=== PATIENT | male | born 1985 | race American Indian/Alaskan Native ===

== ENCOUNTER 2017-10-05 14:06 | Emergency (ER) | payer SELFPAY ==
[2017-10-05] MEDS ORDERED: ASPIRIN PO ONE (14:33)
[2017-10-05 15:04] LABS: Basophils # (Auto) 0.1 K/mm3 (0.0-0.1); Basophils % (Auto) 0.8 % (0.0-1.8); Eosinophils % (Auto) 0.2 % (0.0-4.3); Hematocrit 45.4 % (35.5-45.6); Hemoglobin 15.8 gm/dl (11.8-15.2); Lymphocytes # (Auto) 1.1 K/mm3 (1.2-5.4); Mean Corpuscular HGB Conc 35 % (32-34); Mean Corpuscular Hemoglobin 31 pg (28-32); Mean Corpuscular Volume 89 fl (84-94); Monocytes # (Auto) 0.7 K/mm3 (0.0-0.8); Monocytes % (Auto) 10.6 % (0.0-7.3); Platelet Count 241 K/mm3 (140-440); Red Blood Count 5.12 M/mm3 (3.65-5.03); Red Cell Distribution Width 13.8 % (13.2-15.2)
[2017-10-05 15:08] LABS: BUN/Creatinine Ratio 15; Blood Urea Nitrogen 9 mg/dL (9-20); Hemolysis Index 33
--- NOTE | 2017-10-05 15:39 | Emergency Department Report ---
ED Chest Pain HPI - General Chief Complaint: Chest Pain Stated Complaint: CHEST PAIN Time Seen by Provider: 10/05/17 15:01 Source: EMS Mode of arrival: Stretcher Limitations: No Limitations - History of Present Illness Initial Comments: Patient said last night, he developed sudden onset left-sided chest pain that radiated down his left arm. It occurred at rest. He went to sleep. This morning, his symptoms returned worse than the night before. He got lightheaded and passed out onto the ground. Intermittently remembers lying on the floor unable to move. Had urinary incontinence. He was having difficult breathing until EMS put oxygen on him. The patient arrives to the ER complaining of chest pain and that his whole body is numb. He says that his first cousin from unexplained heart condition. Reportedly, he was told that he has an enlarged heart and was supposed to have surgery for it but never did. Currently is incarcerated. Severity scale (0 -10): 10 - Related Data Previous Rx's Medication Instructions Recorded Last Taken Type HYDROcodone/APAP 5-325 [Bul[place]de 1 each PO Q6HR PRN #10 tablet 05/05/16 Unknown Rx 5/325] Allergies Allergy/AdvReac Type Severity Reaction Status Date / Time No Known Allergies Allergy Verified 05/04/16 22:59 Heart Score - HEART Score History: Slightly suspicious EKG: Normal Age: < 45 Risk factors: 1-2 risk factors Troponin: < normal limit HEART Score: 1 ED Review of Systems ROS: Stated complaint: CHEST PAIN Other details as noted in HPI Constitutional: denies: chills, fever Eyes: denies: eye pain, eye discharge, vision change ENT: denies: ear pain, throat pain Respiratory: SOB at rest. denies: cough, shortness of breath, wheezing Cardiovascular: chest pain, syncope. denies: palpitations Endocrine: no symptoms reported Gastrointestinal: nausea. denies: abdominal pain, diarrhea Genitourinary: denies: urgency, dysuria Musculoskeletal: denies: back pain, joint swelling, arthralgia Skin: denies: rash, lesions Neurological: paresthesias. denies: headache, weakness Psychiatric: denies: anxiety, depression Hematological/Lymphatic: denies: easy bleeding, easy bruising ED Past Medical Hx - Past Medical History Previous Medical History?: Yes Hx Hypertension: Yes Additional medical history: cardiomegaly,anemia,cholesterol - Surgical History Past Surgical History?: No - Social History Smoking Status: Former Smoker Substance Use Type: None - Medications Home Medications: Home Medications Medication Instructions Recorded Confirmed Last Taken Type HYDROcodone/APAP 5-325 [Bul[place]de 1 each PO Q6HR PRN #10 tablet 05/05/16 Unknown Rx 5/325] ED Physical Exam - General Limitations: No Limitations General appearance: alert, in no apparent distress - Head Head exam: Present: atraumatic, normocephalic - Eye Eye exam: Present: normal appearance - ENT ENT exam: Present: mucous membranes moist - Neck Neck exam: Present: normal inspection - Respiratory Respiratory exam: Present: normal lung sounds bilaterally, chest wall tenderness. Absent: respiratory distress, accessory muscle use - Cardiovascular Cardiovascular Exam: Present: regular rate, normal rhythm. Absent: systolic murmur, diastolic murmur, rubs, gallop - GI/Abdominal GI/Abdominal exam: Present: soft, tenderness (generalized), normal bowel sounds. Absent: guarding, rebound - Rectal Rectal exam: Present: deferred - Extremities Exam Extremities exam: Present: normal inspection - Back Exam Back exam: Present: normal inspection - Neurological Exam Neurological exam: Present: alert, oriented X3, other (able to move all of his extremities) - Psychiatric Psychiatric exam: Present: normal affect, normal mood - Skin Skin exam: Present: warm, dry, intact, normal color. Absent: rash ED Course Vital Signs 10/05/17 10/05/17 14:25 14:41 Temperature 98.3 F 98.2 F Pulse Rate 57 L 57 L Respiratory 9 L 9 L Rate Blood Pressure 144/86 Blood Pressure 144/86 [Right] O2 Sat by Pulse 100 100 Oximetry ED Medical Decision Making - Lab Data Result diagrams: 10/05/17 14:41 10/05/17 14:41 - EKG Data -: EKG Interpreted by Me EKG shows normal: sinus rhythm, axis, intervals, QRS complexes, ST-T waves ( Inferior TWI) Rate: normal - EKG Data Interpretation: nonspecific ST-T wave jasiel - Medical Decision Making 31-year-old male a self-reported history of enlarged heart that presents with syncope and chest pain. Patient is well appearing. Vitals are stable. EKG is nonischemic. Lab work is unremarkable. Unsure if patient is having organic causes of the symptoms. When I'm in the room, he says that he cannot breathe without the nasal cannula in his nose. However, the nasal cannula was not hooked up to oxygen and is showing no signs of respiratory distress or hypoxia. He says that his whole body is numb and that he is unable to close his hands. However, he withdraws to pain in EXTREMITIES. Self-reported neuro deficits showed no anatomic pattern. He is alert and oriented 3. Did have a fall from standing. No indication for CT head imaging based on [place] head CT rules. It is possible that patient might have had a mild seizure since he says he had incontinence and does not remember the event. No history of seizures. My main concern is for possible arrhythmia causing syncope. EKG shows no signs of congenital abnormalities. However, he has a self-reported history of enlarged heart and a first cousin dying from unexplained cardiac reasons. I discussed with the security specialist with the patient who said that their facilities equipped for cardiac monitoring in the medical unit. Patient will have a d- dimer to exclude PE. If positive, patient's have a CT of his chest. I have given him IV fluids. If d-dimer and chest x-ray unremarkable, it is likely that the patient will be discharged with a diagnosis of syncope with outpatient instructions to get a TTE of his heart within the next week. This patient has been signed out to the oncoming physician. - Differential Diagnosis ACS, PE, arrhythmia, dehydration, malingering, pneumothorax Critical care attestation.: If time is entered above; I have spent that time in minutes in the direct care of this critically ill patient, excluding procedure time. ED Disposition Clinical Impression: Syncope and collapse Disposition: Z-01 MED SCREENING EXAM-CONT Is pt being admited?: No Condition: Stable Instructions: Syncope (ED)
[2017-10-05] MEDS ORDERED: NACL 0.9% 500 ML 500 ML IV ONE (16:04)
[2017-10-05] MEDS ORDERED: NACL 0.9% 1000 ML 1,000 ML IV ONE (16:04)
[2017-10-05] MEDS ORDERED: NORCO 5/325 PO ONE (17:17)
[2017-10-05] MEDS ORDERED: NORCO 5/325 ONE (17:17)
--- NOTE | 2017-10-05 17:22 | XRay Report ---
FINAL REPORT EXAM: XR CHEST 1V AP HISTORY: chest pain TECHNIQUE: Single, portable chest x-ray. PRIORS: None. FINDINGS: Cardiac and mediastinal silhouette within normal limits. Lungs are normally expanded and grossly clear. No apparent pneumothorax. Bony thorax grossly unremarkable. IMPRESSION: 1. No acute findings.
[2017-10-05 19:29] VITALS: BP 122/75
== END 2017-10-05 19:41 | disposition home or self-care (01) ==
LOC: ED 14:06
DX: R55 Syncope and collapse (principal); R07.89 Other chest pain; I10 Essential (primary) hypertension; Z87.891 Personal history of nicotine dependence
CPT/HCPCS: 36415; 71045; 80048; 84484; 85025; 85379; 93005; 93010; 96360; 99284; J7030; J7040

== ENCOUNTER 2019-06-12 06:56 | Emergency (ER) | payer SELFPAY ==
[2019-06-12 07:35] LABS: Basophils % (Auto) 0.2 % (0.0-1.8); Eosinophils % (Auto) 0.3 % (0.0-4.3); Hematocrit 46.4 % (35.5-45.6); Lymphocytes # (Auto) 0.4 K/mm3 (1.2-5.4); Mean Corpuscular HGB Conc 34 % (32-34); Mean Corpuscular Volume 90 fl (84-94); Monocytes % (Auto) 10.7 % (0.0-7.3); Platelet Count 220 K/mm3 (140-440); Red Blood Count 5.14 M/mm3 (3.65-5.03); Red Cell Distribution Width 13.5 % (13.2-15.2)
[2019-06-12 07:59] LABS: Alanine Aminotransferase 28 units/L (7-56); Albumin 4.7 g/dL (3.9-5); BUN/Creatinine Ratio 14; Blood Urea Nitrogen 11 mg/dL (9-20); Calcium 9.9 mg/dL (8.4-10.2); Hemolysis Index 22
[2019-06-12] MEDS ORDERED: ONDANSETRON 4 MG ODT TAB PO ONE (08:06)
[2019-06-12] MEDS ORDERED: KETOROLAC 30 MG/1 ML INJ IM ONE (08:06)
[2019-06-12 08:07] VITALS: BP 117/73
--- NOTE | 2019-06-12 08:15 | Emergency Department Report ---
ED Fever HPI - General Chief Complaint: Abdominal Pain Stated Complaint: FLU SYMPTOMS Time Seen by Provider: 06/12/19 07:59 - History of Present Illness Initial Comments: flu like sx myalgias, fever cough, congestion dysuria n/v/d sx x 3 days Timing/Duration: other (3 days) Fever Severity/Quality: greater than 100.5 F Associated Symptoms: cough, headache, muscle aches, nausea/vomiting. denies: shortness of breath, stiff neck ED Review of Systems ROS: Stated complaint: FLU SYMPTOMS Other details as noted in HPI Comment: All other systems reviewed and negative Constitutional: see HPI ENT: as per HPI Respiratory: see HPI Gastrointestinal: as per HPI Genitourinary: as per HPI Neurological: as per HPI ED Past Medical Hx - Past Medical History Previous Medical History?: Yes Hx Hypertension: Yes Additional medical history: cardiomegaly,anemia,cholesterol - Surgical History Past Surgical History?: No - Social History Smoking Status: Never Smoker Substance Use Type: None - Medications Home Medications: Home Medications Medication Instructions Recorded Confirmed Last Taken Type HYDROcodone/APAP 5-325 [[place] 1 each PO Q6HR PRN #10 tablet 05/05/16 Unknown Rx 5/325] Albuterol Sulfate [Proventil Hfa] 1 - 2 puff IH QID #1 hfa.aer.ad 06/12/19 Unknown Rx Benzonatate 200 mg PO BID #21 capsule 06/12/19 Unknown Rx predniSONE [Deltasone] 40 mg PO QDAY #10 tab 06/12/19 Unknown Rx ED Physical Exam - General Limitations: No Limitations General appearance: alert, in no apparent distress - Head Head exam: Present: atraumatic, normocephalic - Eye Eye exam: Present: normal appearance - ENT ENT exam: Present: normal orophraynx, mucous membranes moist - Neck Neck exam: Present: normal inspection - Respiratory Respiratory exam: Present: normal lung sounds bilaterally, other (productive cough noted). Absent: respiratory distress - Cardiovascular Cardiovascular Exam: Present: regular rate, normal rhythm. Absent: systolic murmur, diastolic murmur, rubs, gallop - GI/Abdominal GI/Abdominal exam: Present: soft, normal bowel sounds. Absent: tenderness - Rectal Rectal exam: Present: deferred - Extremities Exam Extremities exam: Present: normal inspection - Back Exam Back exam: Present: normal inspection - Neurological Exam Neurological exam: Present: alert, oriented X3, other (no focal deficits) - Psychiatric Psychiatric exam: Present: normal affect, normal mood - Skin Skin exam: Present: warm, dry, intact, normal color. Absent: rash ED Course Vital Signs 06/12/19 06/12/19 07:00 08:19 Temperature 99.7 F H Pulse Rate 82 Respiratory 18 18 Rate Blood Pressure 117/73 O2 Sat by Pulse 98 99 Oximetry ED Medical Decision Making - Lab Data Result diagrams: 06/12/19 07:19 06/12/19 07:19 - Medical Decision Making flu sx x 3 days sx consistent with influenza but also has dysuria labs ordered from triage are normal cxr clear UA neg recommend supportive care and pcp fu - Differential Diagnosis flu, viral syndrome, pna, uti Critical care attestation.: If time is entered above; I have spent that time in minutes in the direct care of this critically ill patient, excluding procedure time. ED Disposition Clinical Impression: Flu-like symptoms Disposition: DC-01 TO HOME OR SELFCARE Is pt being admited?: No Condition: Stable Instructions: Influenza (ED) Prescriptions: Benzonatate 200 mg PO BID #21 capsule predniSONE [Deltasone] 40 mg PO QDAY #10 tab Albuterol Sulfate [Proventil Hfa] 1 - 2 puff IH QID #1 hfa.aer.ad Referrals: PRIMARY MD MARY [Primary Care Provider] - 3-5 Days CLINT BRAMBILA MD [Referring] - 3-5 Days Time of Disposition: 09:29
--- NOTE | 2019-06-12 08:36 | XRay Report ---
CHEST 2 VIEWS INDICATION: cough, fever. COMPARISON: 10/05/2017 FINDINGS: Support devices: None. Heart: Within normal limits. Pulmonary vasculature: Normal. Lungs/pleura: No acute air space or interstitial disease. No pneumothorax. Additional findings: None. IMPRESSION: 1. No acute findings. Signer Name: Raul Christian MD Signed: 06/12/2019 8:31 AM Workstation Name: [id number]
[2019-06-12 09:05] LABS: Bilirubin,Urine NEG (Negative); Blood,Urine NEG (Negative); Color,Urine Yellow (Yellow); Mucus,Urine 2+ /HPF; Protein,Urine <15 mg/dL mg/dL (Negative)
== END 2019-06-12 09:51 | disposition home or self-care (01) ==
LOC: ED 06:56
DX: R50.9 Fever, unspecified (principal); R05 Cough; R09.81 Nasal congestion; M79.10 Myalgia, unspecified site; I10 Essential (primary) hypertension; D64.9 Anemia, unspecified; Z79.899 Other long term (current) drug therapy
CPT/HCPCS: 36415; 71046; 80053; 81001; 83690; 85025; 96372; 99284; J1885; Q0162